=== PATIENT | female | born 1940 | race Caucasian/White ===

== ENCOUNTER → 2017-01-11 | Outpatient (CLI) | payer MEDICARE ==
[~2017-01-11] MED LIST: ACID REDUCER150 MG PO; ASPIRIN EC81 MG PO; CELEXA40 MG PO; CRANBERRY400 MG PO; ISOSORBIDE MONO60 MG PO; LEVOTHROID (S125 MCG PO; METOPROLOL TART25 MG PO; NITROGLYCERIN0.4 MG SL; PROTONIX40 MG PO; VITAMIN D1000 UNIT PO; ZOCOR40 MG PO
--- NOTE | ~2017-01-11 | OR ---
PATIENT'S NAME: JESSICA GAXIOLA [facility] AGE: 76 Y [address] ROOM: [place] [address] LOCATION: [facility] ADMIT DATE: 01/11/2017 OR/Procedure Report DISCHARGE DATE: FAMILY PHYSICIAN: Dorian Flowers PA-C ATTENDING PHYSICIAN: ANASTASIYA GRIJALVA SURGEON: Anastasiya Grijalva MD INSURANCE SALESPERSON: DATE OF PROCEDURE: 01/11/2017 CT Angiogram and Coronary Calcium Score Imaging Report. INDICATION: Chest pain, hypertension. PROCEDURE: The procedure was described to the patient and informed consent was obtained. The patient received 50 mg of metoprolol at home and an additional [address] angiogram for heart rate control. Calcium scoring was performed. A total Agatston score is 56, and the Agatston score in the left main coronary artery is 56. No significant calcification was noted in the left anterior descending artery, circumflex coronary artery, and right coronary artery. Subsequently, a CT coronary angiogram was performed using 64- slice CT scanner. The patient was injected with 100 mL of Isovue-370. FINDINGS: 1. The left main coronary artery arises from the left coronary cusp. There is ostial calcified plaque which causes less than 25% luminal stenosis. The left main coronary artery gives rise to left anterior descending artery and left circumflex coronary artery. The left anterior descending artery is a large caliber vessel and it gives rise to diagonal branch. No significant stenosis was noted in the left anterior descending artery. 2. Left circumflex coronary artery: Left circumflex coronary artery is a moderate-sized vessel. It gives rise to obtuse marginal branch. No significant disease was noted in the left circumflex coronary artery and its branches. 3. Right coronary artery: Right coronary artery is a dominant vessel. It arises from the right coronary cusp. Mid right coronary artery has a noncalcified plaque which causes less than 50% luminal stenosis. The distal right coronary artery is without any significant disease. Distally, it gives rise to small posterior descending artery which could not be visualized very well. IMPRESSION: 1. A total Agatston score is 56. 2. Nonobstructive coronary artery disease as described above. The noncardiac findings will be reported by the radiologist. PATIENT'S NAME: JESSICA GAXIOLA [facility] AGE: 76 Y [address] ROOM: [place] [address] LOCATION: [facility] ADMIT DATE: 01/11/2017 OR/Procedure Report DISCHARGE DATE: FAMILY PHYSICIAN: Dorian Flowers PA-C ATTENDING PHYSICIAN: ANASTASIYA GRIJALVA MD KISHAN KATZ/carmelita /[id number] d: 01/11/[id number] t: 01/22/17 180, OPERATIVE SUMMARY
== END | disposition disaster alternative care site (69) ==
LOC: GOPD 01-08
PROC: B206YZZ Plain Radiography of Right and Left Heart using Other Contrast (ICD-10-PCS; principal; 2017-01-11)
DX: I25.119 Atherosclerotic heart disease of native coronary artery with unspecified angina pectoris (principal); I10 Essential (primary) hypertension; E11.9 Type 2 diabetes mellitus without complications; J84.10 Pulmonary fibrosis, unspecified; K44.9 Diaphragmatic hernia without obstruction or gangrene; K76.89 Other specified diseases of liver; R07.9 Chest pain, unspecified
CPT/HCPCS: J2001; J7030; Q9967